=== PATIENT | female | born 1980 | race African-American/Black ===

== ENCOUNTER 2023-11-17 21:36 | Emergency (ER) | payer OTHER ==
[~2023-11-17] VITALS: Ht 162.6 cm; Wt 87.1 kg
[2023-11-17 21:40] VITALS: TEMP 98.7
[2023-11-17] MEDS ORDERED: AMOXICILLIN875 MG PO (22:08)
[2023-11-17] MEDS ORDERED: HYDROCODON-ACE1 EA12 PO (22:16)
[2023-11-17] MEDS ORDERED: ACETAMINOPHEN 325 MG TAB ONE (22:29)
[2023-11-17] MEDS: ACETAMINOPHEN 325 MG TAB PO ONE (22:33)
[2023-11-17 22:36] VITALS: PULSE 89; RESP 18; O2SAT 99
== END 2023-11-17 22:30 | disposition home or self-care (01) ==
LOC: FSED 21:39
DX: K02.9 Dental caries, unspecified (principal); K08.89 Other specified disorders of teeth and supporting structures; I10 Essential (primary) hypertension; F32.A Depression, unspecified
CPT/HCPCS: 81025; 99283